=== PATIENT | male | born 1995 | race African-American/Black ===

== ENCOUNTER 2017-12-24 15:10 | Inpatient (IN) | END 2017-12-28 13:54 | disposition home or self-care (01) | DRG 872 ==

== ENCOUNTER 2018-03-29 14:56 | Emergency (ER) | END 2018-03-29 18:56 | disposition home or self-care (01) ==

== ENCOUNTER 2019-06-23 13:56 | Emergency (ER) | payer BC ==
[~2019-06-23] VITALS: Ht 180.3 cm; Wt 90.7 kg
[~2019-06-23 13:56] MED LIST: BEN50 PO; CEPH-443 PO; CLIN300C10 PO; CLOT30CR24 TOP; FLUC150T PO; HYDR-3601 PO; PRED20TA PO
[2019-06-23 14:04] VITALS: BP 129/67; PULSE 73; RESP 20; Ht 180.3 cm; Wt 90.7 kg
== END 2019-06-23 14:52 | disposition home or self-care (01) ==
LOC: FTE 13:56
DX: L29.9 Pruritus, unspecified (principal)
CPT/HCPCS: 99283